=== PATIENT | male | born 1975 | race Caucasian/White ===

== ENCOUNTER 2016-11-14 14:14 | Inpatient (IN) | payer OTHER, SELFPAY ==
[2016-11-14] MEDS ORDERED: Levofloxacin/Dextrose 5%-Water 750 MG in Premix Bag 1 BAG IV ONE (17:13)
--- NOTE | 2016-11-14 17:23 | EDM.PDOC ---
ED HPI GENERAL MEDICAL PROBLEM - General Chief Complaint: Flank Pain Stated Complaint: SICK X 5 DAY Time Seen by Provider: 11/14/16 15:00 Source of Information: Reports: Patient History Limitations: Reports: No Limitations - History of Present Illness INITIAL COMMENTS - FREE TEXT/NARRATIVE: This 41 yo male patient reports to the ED with right flank pain, lower abdominal pain and generalized weakness. The patient reports his symptoms started last Sunday and have been getting worse since the start. 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 Onset Date: 11/10/16 Duration: Constant, Getting Worse Location: Reports: Abdomen Quality: Reports: Ache, Burning, Sharp Severity: Moderate Improves with: Reports: None Worsens with: Reports: None Associated Symptoms: Reports: Cough (non productive), Nausea/Vomiting, Weakness - Related Data Allergies Allergy/AdvReac Type Severity Reaction Status Date / Time No Known Allergies Allergy Verified 11/14/16 14:28 Home Meds: Home Meds Sulfamethoxazole/Trimethoprim [Sulfamethoxazole-Tmp Ss Tablet] 1 tab PO DAILY [History] Past Medical History - Past Health History Medical/Surgical History: Denies Medical/Surgical History HEENT History: Reports: Impaired Vision Genitourinary History: Reports: UTI, Recurrent - Past Surgical History Male Surgical History: Reports: Other (See Below) Other Male Surgeries/Procedures: one functioning kidney Musculoskeletal Surgical History: Reports: Other (See Below) Other Musculoskeletal Surgeries/Procedures:: right leg surgery Social & Family History - Family History Family Medical History: Noncontributory - Tobacco Use Smoking Status *Q: Never Smoker Second Hand Smoke Exposure: No - Caffeine Use Caffeine Use: Reports: None - Alcohol Use Days Per Week of Alcohol Use: 7 Number of Drinks Per Day: 4 Total Drinks Per Week: 28 - Recreational Drug Use Recreational Drug Use: No ED ROS GENERAL - Review of Systems Review Of Systems: ROS reveals no pertinent complaints other than HPI. ED EXAM, RENAL/ - Physical Exam Exam: See Below Exam Limited By: No Limitations General Appearance: Alert, WD/WN, Moderate Distress, Thin Eye Exam: Bilateral Eye: EOMI, Normal Inspection, PERRL Ears: Normal External Exam, Normal Canal, Hearing Grossly Normal, Normal TMs Nose: Normal Inspection, Normal Mucosa, No Blood Throat/Mouth: Normal Inspection, Normal Lips, Normal Teeth, Normal Gums, Normal Oropharynx, Normal Voice, No Airway Compromise Head: Atraumatic, Normocephalic Neck: Normal Inspection, Supple, Non-Tender, Full Range of Motion Respiratory/Chest: No Respiratory Distress, Lungs Clear, Normal Breath Sounds, No Accessory Muscle Use, Chest Non-Tender Cardiovascular: Normal Peripheral Pulses, Regular Rate, Rhythm, No Edema, No Gallop, No JVD, No Murmur, No Rub GI/Abdominal: Normal Bowel Sounds, Soft, No Distention, No Abnormal Bruit, No Mass, Pelvis Stable, Guarding, Tender (mid lower abdominal pain) (Male) Exam: Deferred Rectal (Males) Exam: Deferred Back Exam: Normal Inspection, Full Range of Motion, NT Extremities: Normal Inspection, Normal Range of Motion, Non-Tender, Normal Capillary Refill, No Pedal Edema Neurological: Alert, Oriented, CN II-XII Intact, Normal Cognition, Normal Reflexes, No Motor/Sensory Deficits Psychiatric: Normal Affect, Normal Mood Skin Exam: Warm, Dry, Intact, Normal Color, No Rash Lymphatic: No Adenopathy Course - Vital Signs Last Recorded V/S: Last Vital Signs Temp 38.4 C H 11/14/16 14:29 Pulse 130 H 11/14/16 14:29 Resp 20 11/14/16 14:29 BP 120/80 11/14/16 14:29 Pulse Ox 95 11/14/16 14:29 - Orders/Labs/Meds Orders: Active Orders 24 hr Category Date Time Status CULTURE BLOOD [BC] Stat Lab 11/14/16 16:55 Received CULTURE BLOOD [BC] Stat Lab 11/14/16 16:59 Received CULTURE URINE [RM] Stat Lab 11/14/16 14:25 Received LACTIC ACID [CHEM] Stat Lab 11/14/16 16:55 Received Levofloxacin/Dextrose 5%-Water [Levaquin in D5W 750 MG/ Med 11/14/16 17:13 Ordered 150 ML] 750 mg Premix Bag 1 bag IV ONETIME Blood Culture x2 Reflex Set [OM.PC] Stat Oth 11/14/16 16:39 Ordered Medication Orders Levofloxacin/Dextrose 750 mg/ (Premix) 150 mls @ 100 mls/hr IV ONETIME ONE Stop: 11/14/16 18:42 Labs: Laboratory Tests 11/14/16 11/14/16 11/14/16 Range/Units 14:25 15:46 15:46 WBC 12.7 H (5.0-10.0) 10^3/uL RBC 4.68 (4.6-6.2) 10^6/uL Hgb 13.9 L (14.0-18.0) g/dL Hct 39.4 L (40.0-54.0) % MCV 84.2 (80-100) fL MCH 29.7 (27.0-34.0) pg MCHC 35.3 H (33.0-35.0) g/dL Plt Count 198 (150-450) 10^3/uL Neut % (Auto) 78.8 H (42.2-75.2) % Lymph % (Auto) 7.8 L (20.5-50.1) % Bee % (Auto) 13.3 H (2-8) % Eos % (Auto) 0.0 L (1.0-3.0) % Baso % (Auto) 0.1 (0.0-1.0) % Add Manual Diff Yes Neutrophils % (Manual) 68 % Band Neutrophils % 13 % Lymphocytes % (Manual) 8 % Monocytes % (Manual) 11 % Sodium 126 L (135-145) mmol/L Potassium 3.8 (3.6-5.0) mmol/L Chloride 90 L (101-111) mmol/L Carbon Dioxide 23.0 (21.0-31.0) mmol/L Anion Gap 16.8 BUN 31 H (7-18) mg/dL Creatinine 1.6 H (0.6-1.3) mg/dL Est Cr Clr Drug Dosing 66.01 mL/min Estimated GFR (MDRD) 48 BUN/Creatinine Ratio 19.37 Glucose 108 H (74-105) mg/dL Calcium 8.9 (8.4-10.2) mg/dl Total Bilirubin 1.0 (0.2-1.0) mg/dL AST 41 (10-42) IU/L ALT 51 (10-60) IU/L Alkaline Phosphatase 72 (42-121) IU/L Total Protein 7.8 (6.7-8.2) g/dl Albumin 2.9 L (3.2-5.5) g/dl Globulin 4.9 Albumin/Globulin Ratio 0.59 Urine Color Yellow (YELLOW) Urine Appearance Cloudy (CLEAR) Urine pH 6.0 (5.0-9.0) Ur Specific [place] 1.015 (1.005-1.030) Urine Protein >=300 H (NEGATIVE) Urine Glucose (UA) Negative (NEGATIVE) Urine Ketones 15 H (NEGATIVE) Urine Occult Blood Moderate H (NEGATIVE) Urine Nitrite Positive H (NEGATIVE) Urine Bilirubin Negative (NEGATIVE) Urine Urobilinogen 0.2 (0.2-1.0) mg/dL Ur Leukocyte Esterase Moderate H (NEGATIVE) Urine RBC 5-10 H /HPF Urine WBC 50-75 H (0-5/HPF) /HPF Ur Epithelial Cells Few /HPF Urine Bacteria Many H (0-FEW/HPF) /HPF Meds: Medications Generic Name Dose Route Start Last Admin Trade Name Freq PRN Reason Stop Dose Admin Levofloxacin/Dextrose 750 mg/ 150 mls @ 100 mls/hr 11/14/16 17:13 Premix IV 11/14/16 18:42 ONETIME ONE Departure - Departure Time of Disposition: 17:15 Disposition: Admitted As Inpatient 65 Condition: Fair Clinical Impression: UTI, Urinary tract infectious disease, Hyponatremia - Discharge Information Care Plan Goals: Discussed the examination, lab and history results with Dr. Andrade ( hospitalist with [facility] in [place]). Dr. Andrade accepted the patient for continued evaluation and further treatment as an inpatient. The patient was given an IV dose of Levaquin prior to being transferred to the floor. - My Orders Last 24 Hours: My Active Orders 11/14/16 14:25 CULTURE URINE [RM] Stat 11/14/16 16:39 Blood Culture x2 Reflex Set [OM.PC] Stat 11/14/16 16:55 CULTURE BLOOD [BC] Stat LACTIC ACID [CHEM] Stat 11/14/16 16:59 CULTURE BLOOD [BC] Stat 11/14/16 17:13 Levofloxacin/Dextrose 5%-Water [Levaquin in D5W 750 MG/150 ML] 750 mg Premix Bag 1 bag IV ONETIME - Assessment/Plan Last 24 Hours: My Active Orders 11/14/16 14:25 CULTURE URINE [RM] Stat 11/14/16 16:39 Blood Culture x2 Reflex Set [OM.PC] Stat 11/14/16 16:55 CULTURE BLOOD [BC] Stat LACTIC ACID [CHEM] Stat 11/14/16 16:59 CULTURE BLOOD [BC] Stat 11/14/16 17:13 Levofloxacin/Dextrose 5%-Water [Levaquin in D5W 750 MG/150 ML] 750 mg Premix Bag 1 bag IV ONETIME
[2016-11-14] MEDS ORDERED: Zolpidem 5 MG Tab PO PRN (17:47)
[2016-11-14] MEDS ORDERED: Acetaminophen/HYDROcodone 325-10 MG Tab PO PRN (17:47)
[2016-11-14] MEDS ORDERED: Polyethylene Glycol 3350 Powder 17 GM Packet PO PRN (17:47)
[2016-11-14] MEDS ORDERED: Promethazine 25 MG/ML SDV IM PRN (17:47)
[2016-11-14] MEDS ORDERED: Morphine 2 MG/ML Syringe IVPUSH PRN (17:47)
[2016-11-14] MEDS ORDERED: Ondansetron 4 MG/2 ML SDV IVPUSH PRN (17:47)
--- NOTE | 2016-11-14 18:00 | PCM.HP ---
H&P History of Present Illness - General Date of Service: 11/14/16 Admit Problem/Dx: Admission Diagnosis/Problem Admission Diagnosis/Problem Sepsis Source of Information: Patient, Family () - History of Present Illness Initial Comments - Free Text/Narative: 41-year-old male with the past medical history of recurrent UTI who used to be on chronic treatment of Bactrim but stopped taking Bactrim over 1 year by himself presented to the emergency room with fever, chills, sweats, nausea, vomiting, lower abdomen pain, right flank pain, cough, headache, body aches, poor appetite since 11/10/16 and not getting better. Patient denies dysuria, urinary frequency, blood in his urine, diarrhea, shortness breath, chest pain, or any other symptoms or concerns. Patient denies personal or family history of kidney stones. No significant family history except kidney problem. Patient thinks that he had some congenital urinary problem and that's why he was taking Bactrim. He said whenever he stopped taking his Bactrim he gets urinary infection. Laboratory data revealed WBC 12.7 with left shift. sodium 126. Potassium 3.8. Creatinine 1.6. BUNs 31. Blood glucose 108. Lactic acid 1.1. Liver enzymes are normal. UA is positive for nitrate and has moderate leukocyte esterase and 50-75 WBC, and many bacteria. In the emergency room he was given Levaquin. Patient denies past medical history of hypertension, diabetes mellitus , chronic kidney disease, heart disease, any other chronic disease. He denies taking any medications. - Related Data Allergies/Adverse Reactions: Allergies Allergy/AdvReac Type Severity Reaction Status Date / Time No Known Allergies Allergy Verified 11/14/16 14:28 Home Medications: Home Meds Sulfamethoxazole/Trimethoprim [Sulfamethoxazole-Tmp Ss Tablet] 1 tab PO DAILY [History] Past Medical History - Past Health History Medical/Surgical History: Denies Medical/Surgical History HEENT History: Reports: Impaired Vision Genitourinary History: Reports: UTI, Recurrent - Past Surgical History Male Surgical History: Reports: Other (See Below) Other Male Surgeries/Procedures: one functioning kidney Musculoskeletal Surgical History: Reports: Other (See Below) Other Musculoskeletal Surgeries/Procedures:: right leg surgery Social & Family History - Family History Family Medical History: Noncontributory - Tobacco Use Smoking Status *Q: Never Smoker Second Hand Smoke Exposure: No - Caffeine Use Caffeine Use: Reports: None - Alcohol Use Days Per Week of Alcohol Use: 7 Number of Drinks Per Day: 4 Total Drinks Per Week: 28 - Recreational Drug Use Recreational Drug Use: No H&P Review of Systems - Review of Systems: Review Of Systems: ROS reveals no pertinent complaints other than HPI. Exam - Exam Exam: See Below - Vital Signs Vital Signs: Last Vital Signs Temp 39.0 C H 11/14/16 17:29 Pulse 96 11/14/16 17:29 Resp 20 11/14/16 17:29 BP 130/79 11/14/16 17:29 Pulse Ox 97 11/14/16 17:29 Weight: 77.128 kg - Exam General: Alert, Oriented, Cooperative, Other (He has ill-looking). No: Sedated , Lethargic, Obtunded HEENT: Conjunctiva Clear, EACs Clear, EOMI, Hearing Intact, Mucosa Moist & [place] , Nares Patent, Normal Nasal Septum, Posterior Pharynx Clear, Pupils Equal, Pupils Reactive, TMs Clear Neck: Supple, Trachea Midline. No: JVD Lungs: Clear to Auscultation, Normal Respiratory Effort. No: Decreased Breath Sounds Cardiovascular: Regular Rate, Regular Rhythm GI/Abdominal Exam: Normal Bowel Sounds, Soft, No Organomegaly, No Distention, No Abnormal Bruit, No Mass, Pelvis Stable, Tender (In lower abdomen only). No: Distended, Guarding, Rigid, Rebound (Male) Exam: Deferred Rectal (Males) Exam: Deferred Back Exam: Normal Inspection, Full Range of Motion, CVA Tenderness (R). No: CVA Tenderness (L) Extremities: Normal Inspection, Normal Range of Motion, Non-Tender, No Pedal Edema, Normal Capillary Refill Skin: Warm, Dry, Intact Neurological: Cranial Nerves Intact, Reflexes Equal Bilateral Neuro Extensive - Mental Status: Alert, Oriented x3, Normal Mood/Affect Neuro Extensive - Motor, Sensory, Reflexes: CN II-XII Intact, Normal Gait, Normal Reflexes Psychiatric: Alert, Normal Affect, Normal Mood - Patient Data Result Diagrams: 11/14/16 15:46 11/14/16 15:46 *Q Meaningful Use (ADM) - VTE *Q VTE Criteria *Q: - Stroke *Q Stroke Criteria *Q: - AMI *Q AMI Criteria *Q: - Problem List (1) Sepsis SNOMED Code(s): 11693083 ICD Code: A41.9 - SEPSIS, UNSPECIFIED ORGANISM Status: Acute Current Visit: Yes Problem List Initiated/Reviewed/Updated: Yes Orders Last 24hrs: Active Orders 24 hr Category Date Time Status Patient Status [ADT] Routine ADT 11/14/16 17:47 Ordered Antiembolic Devices [RC] PER UNIT ROUTINE Care 11/14/16 17:51 Ordered Height and Weight [RC] DAILY Care 11/14/16 17:47 Ordered Intake and Output [RC] Q6H Care 11/14/16 17:50 Ordered May Shower [RC] ASDIRECTED Care 11/14/16 17:47 Ordered Oxygen Therapy [RC] PRN Care 11/14/16 17:47 Ordered Up ad Sheila [RC] ASDIRECTED Care 11/14/16 17:47 Ordered VTE/DVT Education [RC] PER UNIT ROUTINE Care 11/14/16 17:47 Ordered Vital Signs [RC] Q4H Care 11/14/16 17:47 Ordered Regular Diet [DIET] Diet 11/14/16 Breakfast Ordered Chest 2V [CR] AM Exams 11/15/16 05:11 Ordered BASIC METABOLIC PANEL,BMP [CHEM] AM Lab 11/15/16 05:11 Ordered CBC WITH AUTO DIFF [HEME] AM Lab 11/15/16 05:11 Ordered MAGNESIUM [CHEM] AM Lab 11/15/16 05:11 Ordered Acetaminophen [Tylenol] Med 11/14/16 17:47 Ordered 650 mg PO Q4H PRN Acetaminophen/HYDROcodone [[place] 325-10 MG] Med 11/14/16 17:47 Ordered 0.5 tab PO Q4H PRN Levofloxacin/Dextrose 5%-Water [Levaquin in D5W 750 MG/ Med 11/14/16 18:00 Ordered 150 ML] 750 mg Premix Bag 1 bag IV Q24H Morphine Med 11/14/16 17:47 Ordered 2 mg IVPUSH Q2H PRN Ondansetron [Zofran] Med 11/14/16 17:47 Ordered 4 mg IVPUSH Q6H PRN Polyethylene Glycol 3350 [MiraLAX] Med 11/14/16 17:47 Ordered 17 gm PO DAILY PRN Promethazine [Phenergan] Med 11/14/16 17:47 Ordered 6.25 mg IM Q6H PRN Sodium Chloride 0.9% [Normal Saline] 1,000 ml Med 11/14/16 18:00 Ordered IV ASDIRECTED Sodium Chloride 0.9% [Normal Saline] 2,350 ml Med 11/14/16 17:45 Ordered IV .BOLUS Zolpidem [Ambien] Med 11/14/16 17:47 Ordered 5 mg PO BEDTIME PRN Antiembolic Hose [OM.PC] Per Unit Routine Oth 11/14/16 17:51 Ordered Sequential Compression Device [OM.PC] Per Unit Routine Oth 11/14/16 17:51 Ordered Resuscitation Status Routine Resus Stat 11/14/16 17:47 Ordered Medication Orders Levofloxacin/Dextrose 750 mg/ (Premix) 150 mls @ 100 mls/hr IV ONETIME ONE Stop: 11/14/16 18:42 Last Admin: 11/14/16 17:18 Dose: 100 mls/hr Assessment/Plan Comment:: Assessment and plan Sepsis, source of infection is most likely urinary tract Elevated WBC and temp Fluid resuscitation with normal saline bolus of 2350 mL -IV fluid infusion of normal saline at 75 mL per hour after the bolus -Levaquin 750 milligrams IV daily -Awaiting urine and blood cultures as they were ordered in ER -Consider CT abdomen if he continues to have symptoms in the next 24-48 hours Urinary tract infection As above Patient was advised to continue taking his Bactrim until he follow-up with his primary care provider and consider urology consult Hyponatremia Fluid resuscitation Recheck sodium in the morning Cough -Chest x-ray ordered WILBER zee and Lyric for DVT prophylaxis. He is full code
[2016-11-14] MEDS: Acetaminophen 325 MG Tab PO PRN (21:15)
[2016-11-14] MEDS: Sodium Chloride 0.9% 1,000 ML IV SCH (21:52)
[2016-11-15] MEDS: Sodium Chloride 0.9% 1,000 ML IV SCH (05:58)
[2016-11-15] MEDS: Acetaminophen 325 MG Tab PO PRN ×3 (10:08→23:00)
[2016-11-15] MEDS ORDERED: Potassium Chloride 10 MEQ Tab.ER PO ONE (10:15)
--- NOTE | 2016-11-15 13:29 | PCM.PN ---
- General Info Date of Service: 11/15/16 Admission Dx/Problem (Free Text): Admission Diagnosis/Problem Admission Diagnosis/Problem Sepsis Subjective Update: Patient stated that he is feeling much better. He is still getting sweats. Lower abdomen/left flank pain, and appetite are improving. His cough still dry and not changed. He denies fever, chills, nausea, vomiting, shortness breath, chest pain, dysuria, urinary frequency, any other symptoms or concerns. - Patient Data Vitals - Most Recent: Last Vital Signs Temp 37.2 C 11/15/16 11:26 Pulse 86 11/15/16 11:26 Resp 20 11/15/16 11:26 BP 124/80 11/15/16 11:26 Pulse Ox 98 11/15/16 11:26 Weight - Most Recent: 75.115 kg I&O - Last 24 Hours: Intake & Output 11/14/16 11/15/16 11/15/16 22:59 06:59 14:59 Intake Total 600 4285 1060 Output Total 600 2700 850 Balance 0 1585 210 Lab Results Last 24 Hours: Laboratory Results - last 24 hr 11/15/16 11/15/16 11/15/16 Range/Units 06:20 06:20 06:20 WBC 9.7 (5.0-10.0) 10^3/uL RBC 4.41 L (4.6-6.2) 10^6/uL Hgb 12.8 L (14.0-18.0) g/dL Hct 37.5 L (40.0-54.0) % MCV 85.0 (80-100) fL MCH 29.0 (27.0-34.0) pg MCHC 34.1 (33.0-35.0) g/dL Plt Count 156 (150-450) 10^3/uL Neut % (Auto) 76.7 H (42.2-75.2) % Lymph % (Auto) 7.6 L (20.5-50.1) % [place] % (Auto) 15.7 H (2-8) % Eos % (Auto) 0.0 L (1.0-3.0) % Baso % (Auto) 0.0 (0.0-1.0) % Sodium 131 L (135-145) mmol/L Potassium 3.5 L (3.6-5.0) mmol/L Chloride 96 L (101-111) mmol/L Carbon Dioxide 22.0 (21.0-31.0) mmol/L Anion Gap 16.5 BUN 26 H (7-18) mg/dL Creatinine 1.5 H (0.6-1.3) mg/dL Est Cr Clr Drug Dosing 68.16 mL/min Estimated GFR (MDRD) 51 Glucose 94 (74-105) mg/dL Calcium 8.5 (8.4-10.2) mg/dl Magnesium 1.9 (1.8-2.5) mg/dL C-Reactive Protein 18.9 H (0.0-1.3) mg/dL Med Orders - Current: Current Medications Acetaminophen (Tylenol) 650 mg PO Q4H PRN PRN Reason: Pain (Mild 1-3)/fever Last Admin: 11/15/16 10:08 Dose: 650 mg Hydrocodone Bitart/Acetaminophen ([place] 325-10 Mg) 0.5 tab PO Q4H PRN PRN Reason: Pain (moderate 4-6) Levofloxacin/Dextrose 750 mg/ (Premix) 150 mls @ 100 mls/hr IV Q24H [place] Sodium Chloride (Normal Saline) 1,000 mls @ 75 mls/hr IV ASDIRECTED [place] Stop: 11/16/16 18:01 Morphine Sulfate (Morphine) 2 mg IVPUSH Q2H PRN PRN Reason: Pain (severe 7-10) Ondansetron HCl (Zofran) 4 mg IVPUSH Q6H PRN PRN Reason: Nausea/Vomiting Polyethylene Glycol (Miralax) 17 gm PO DAILY PRN PRN Reason: Constipation Promethazine HCl (Phenergan) 6.25 mg IM Q6H PRN PRN Reason: Nausea/Vomiting Zolpidem Tartrate (Ambien) 5 mg PO BEDTIME PRN PRN Reason: Sleep Discontinued Medications Levofloxacin/Dextrose 750 mg/ (Premix) 150 mls @ 100 mls/hr IV ONETIME ONE Stop: 11/14/16 18:42 Last Admin: 11/14/16 17:18 Dose: 100 mls/hr Sodium Chloride (Normal Saline) 2,350 mls @ 999 mls/hr IV .BOLUS ONE Stop: 11/14/16 20:06 Last Infusion: 11/14/16 21:52 Dose: Infused Sodium Chloride (Normal Saline) 1,000 mls @ 75 mls/hr IV ASDIRECTED [facility] Last Admin: 11/15/16 05:58 Dose: 75 mls/hr Potassium Chloride (Klor-Con 10) 20 meq PO ONETIME ONE Stop: 11/15/16 10:16 Last Admin: 11/15/16 10:36 Dose: 20 meq - Exam General: Alert, Oriented, Cooperative, No Acute Distress, Other (He still look mildly ill). No: Moderate Distress, Severe Distress, Sedated, Lethargic, Obtunded HEENT: Pupils Equal, Pupils Reactive, EOMI, Mucous Membr. Moist/[place] Neck: Supple, Trachea Midline, No JVD Lungs: Clear to Auscultation, Normal Respiratory Effort Cardiovascular: Regular Rate, Regular Rhythm GI/Abdominal Exam: Normal Bowel Sounds, Soft, Non-Tender, No Organomegaly, No Distention, No Abnormal Bruit, No Mass, Pelvis Stable (Male) Exam: Deferred Back Exam: Normal Inspection, Full Range of Motion Extremities: Normal Inspection, Normal Range of Motion, Non-Tender, No Pedal Edema, Normal Capillary Refill Skin: Warm, Intact, Moist Neurological: No New Focal Deficit Psy/Mental Status: Alert, Normal Affect, Normal Mood - Problem List & Annotations (1) Sepsis SNOMED Code(s): 89150271 Code(s): A41.9 - SEPSIS, UNSPECIFIED ORGANISM Status: Acute Current Visit : Yes - Problem List Review Problem List Initiated/Reviewed/Updated: Yes - My Orders Last 24 Hours: My Active Orders 11/15/16 17:00 Levofloxacin/Dextrose 5%-Water [Levaquin in D5W 750 MG/150 ML] 750 mg Premix Bag 1 bag IV Q24H 11/15/16 18:00 Sodium Chloride 0.9% [Normal Saline] 1,000 ml IV ASDIRECTED - Plan Plan:: Assessment and plan Sepsis, source of infection is most likely urinary tract. He had elevated WBC and temp On admission patient received fluid resuscitation with normal saline bolus of 2350 mL -Continue IV fluid infusion of normal saline at 75 mL per hour for all another 24 hours -Continue Levaquin 750 milligrams IV daily -Urine culture grew gram-negative rods -Awaiting blood cultures report -Consider CT abdomen if he continues to have symptoms in the next 24-48 hours Urinary tract infection As above Patient was advised to continue taking his Bactrim until he follow-up with his primary care provider and consider urology consult Acute kidney failure Patient declined chronic kidney disease Creatinine improved from 1.6-1.5 -Continue IV fluid infusion Avoid nephrotoxic medications Patient was 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 He admitted Hyponatremia Improving -Recheck sodium in the morning Hypokalemia -Replaced orally Cough Chest x-ray is negative WILBER zee and Lyric for DVT prophylaxis. He is ambulatory He is full code
[2016-11-15] MEDS: Levofloxacin/Dextrose 5%-Water 750 MG in Premix Bag 1 BAG IV SCH (16:47)
[2016-11-15] MEDS ORDERED: Acetaminophen 500 MG Tab PO ONE (17:01)
[2016-11-15] MEDS ORDERED: Sodium Chloride 0.9% 1,000 ML IV SCH (18:00)
[2016-11-16 07:03] LABS: CHLORIDE,CL 99 mmol/L (101-111); SODIUM,NA 132 mmol/L (135-145)
[2016-11-16] MEDS: Acetaminophen 325 MG Tab PO PRN ×3 (07:42→20:38)
[2016-11-16] MEDS ORDERED: Potassium Chloride 10 MEQ Tab.ER PO ONE (08:31)
--- NOTE | 2016-11-16 11:38 | PCM.PN ---
- General Info Date of Service: 11/16/16 Admission Dx/Problem (Free Text): Admission Diagnosis/Problem Admission Diagnosis/Problem Sepsis Subjective Update: Patient stated that he is feeling better but is still having high fever and getting sweats. Lower abdomen/left flank pain, and appetite resolved. His cough still dry and getting better. He denies fever, chills, nausea, vomiting, shortness breath, chest pain, dysuria, urinary frequency, any other symptoms or concerns. - Patient Data Vitals - Most Recent: Last Vital Signs Temp 37.6 C 11/16/16 11:20 Pulse 82 11/16/16 11:20 Resp 19 11/16/16 11:20 BP 119/77 11/16/16 11:20 Pulse Ox 97 11/16/16 11:20 Weight - Most Recent: 75.206 kg I&O - Last 24 Hours: Intake & Output 11/15/16 11/16/16 11/16/16 22:59 06:59 14:59 Intake Total 2031 1825 1680 Output Total 1150 1600 900 Balance 881 225 780 Lab Results Last 24 Hours: Laboratory Results - last 24 hr 11/16/16 11/16/16 11/16/16 Range/Units 06:10 06:10 06:10 WBC 8.6 (5.0-10.0) 10^3/uL RBC 4.35 L (4.6-6.2) 10^6/uL Hgb 12.5 L (14.0-18.0) g/dL Hct 37.2 L (40.0-54.0) % MCV 85.5 (80-100) fL MCH 28.7 (27.0-34.0) pg MCHC 33.6 (33.0-35.0) g/dL Plt Count 174 (150-450) 10^3/uL Neut % (Auto) 69.5 (42.2-75.2) % Lymph % (Auto) 12.3 L (20.5-50.1) % [place] % (Auto) 18.1 H (2-8) % Eos % (Auto) 0.0 L (1.0-3.0) % Baso % (Auto) 0.1 (0.0-1.0) % Add Manual Diff Yes Neutrophils % (Manual) 74 % Band Neutrophils % 3 % Lymphocytes % (Manual) 11 % Monocytes % (Manual) 11 % Metamyelocytes % 1 Atypical Lymphocytes Few Vacuolated Monocytes 1+ slight Toxic Granulation 1+ slight Dohle Bodies 1+ slight Platelet Estimate Adequate Target Cells 1+ slight Tear Drop Cells 1+ slight [place] Cells 1+ slight Sodium 132 L (135-145) mmol/L Potassium 3.4 L (3.6-5.0) mmol/L Chloride 99 L (101-111) mmol/L Carbon Dioxide 23.0 (21.0-31.0) mmol/L Anion Gap 13.4 BUN 17 (7-18) mg/dL Creatinine 1.3 (0.6-1.3) mg/dL Est Cr Clr Drug Dosing 78.65 mL/min Estimated GFR (MDRD) > 60 Glucose 98 (74-105) mg/dL Calcium 8.3 L (8.4-10.2) mg/dl C-Reactive Protein 17.0 H (0.0-1.3) mg/dL Joey Results Last 24 Hours: Microbiology 11/16/16 08:50 Anaerobic Blood Culture - Final Blood - Venous - Lab Draw Med Orders - Current: Current Medications Acetaminophen (Tylenol) 650 mg PO Q4H PRN PRN Reason: Pain (Mild 1-3)/fever Last Admin: 11/16/16 07:42 Dose: 650 mg Hydrocodone Bitart/Acetaminophen (Irons 325-10 Mg) 0.5 tab PO Q4H PRN PRN Reason: Pain (moderate 4-6) Guaifenesin (Mucus Relief) 400 mg PO Q4H PRN PRN Reason: Cough Last Admin: 11/15/16 15:30 Dose: 400 mg Levofloxacin/Dextrose 750 mg/ (Premix) 150 mls @ 100 mls/hr IV Q24H [place] Last Infusion: 11/15/16 18:42 Dose: Infused Sodium Chloride (Normal Saline) 1,000 mls @ 75 mls/hr IV ASDIRECTED [facility] Stop: 11/16/16 18:01 Last Admin: 11/15/16 22:15 Dose: 75 mls/hr Morphine Sulfate (Morphine) 2 mg IVPUSH Q2H PRN PRN Reason: Pain (severe 7-10) Ondansetron HCl (Zofran) 4 mg IVPUSH Q6H PRN PRN Reason: Nausea/Vomiting Polyethylene Glycol (Miralax) 17 gm PO DAILY PRN PRN Reason: Constipation Promethazine HCl (Phenergan) 6.25 mg IM Q6H PRN PRN Reason: Nausea/Vomiting Zolpidem Tartrate (Ambien) 5 mg PO BEDTIME PRN PRN Reason: Sleep Discontinued Medications Acetaminophen (Tylenol Extra Strength) 500 mg PO ONETIME ONE Stop: 11/15/16 17:02 Last Admin: 11/15/16 17:11 Dose: 500 mg Levofloxacin/Dextrose 750 mg/ (Premix) 150 mls @ 100 mls/hr IV ONETIME ONE Stop: 11/14/16 18:42 Last Admin: 11/14/16 17:18 Dose: 100 mls/hr Sodium Chloride (Normal Saline) 2,350 mls @ 999 mls/hr IV .BOLUS ONE Stop: 11/14/16 20:06 Last Infusion: 11/14/16 21:52 Dose: Infused Sodium Chloride (Normal Saline) 1,000 mls @ 75 mls/hr IV ASDIRECTED [facility] Last Admin: 11/15/16 05:58 Dose: 75 mls/hr Potassium Chloride (Klor-Con 10) 20 meq PO ONETIME ONE Stop: 11/15/16 10:16 Last Admin: 11/15/16 10:36 Dose: 20 meq Potassium Chloride (Klor-Con 10) 40 meq PO ONETIME ONE Stop: 11/16/16 08:32 Last Admin: 11/16/16 08:56 Dose: 40 meq - Exam General: Alert, Oriented, Cooperative, No Acute Distress. No: Sedated, Lethargic, Obtunded HEENT: Pupils Equal, Pupils Reactive, EOMI, Mucous Membr. Moist/[place] Neck: Supple, Trachea Midline, No JVD Lungs: Clear to Auscultation, Normal Respiratory Effort. No: Decreased Breath Sounds, Crackles, Rales, Rhonchi, Rub, Stridor, Wheezing Cardiovascular: Regular Rate, Regular Rhythm GI/Abdominal Exam: Normal Bowel Sounds, Soft, Non-Tender, No Organomegaly, No Distention, No Abnormal Bruit, No Mass (Male) Exam: Deferred Back Exam: Normal Inspection, Full Range of Motion. No: CVA Tenderness (L), CVA Tenderness (R) Extremities: Normal Inspection, Normal Range of Motion, Non-Tender, No Pedal Edema, Normal Capillary Refill Neurological: No New Focal Deficit Psy/Mental Status: Alert, Normal Affect, Normal Mood - Problem List & Annotations (1) Sepsis SNOMED Code(s): 67728529 Code(s): A41.9 - SEPSIS, UNSPECIFIED ORGANISM Status: Acute Current Visit : Yes - Problem List Review Problem List Initiated/Reviewed/Updated: Yes - My Orders Last 24 Hours: My Active Orders 11/15/16 15:15 guaiFENesin [Mucus Relief] 400 mg PO Q4H PRN 11/15/16 17:00 Levofloxacin/Dextrose 5%-Water [Levaquin in D5W 750 MG/150 ML] 750 mg Premix Bag 1 bag IV Q24H 11/15/16 18:00 Sodium Chloride 0.9% [Normal Saline] 1,000 ml IV ASDIRECTED 11/16/16 08:25 Blood Culture x2 Reflex Set [OM.PC] Stat 11/16/16 08:48 CULTURE BLOOD [BC] Stat 11/16/16 08:50 CULTURE BLOOD [BC] Stat 11/17/16 05:11 BASIC METABOLIC PANEL,BMP [CHEM] AM CBC WITH AUTO DIFF [HEME] AM MAGNESIUM [CHEM] AM - Plan Plan:: Assessment and plan Sepsis, source of infection is most likely urinary tract. He had elevated WBC and temp On admission patient received fluid resuscitation with normal saline bolus of 2350 mL Urine culture came back positive for Escherichia coli which is sensitive to Levaquin -Continue IV fluid infusion of normal saline at 75 mL per hour for all another 24 hours -Continue Levaquin 750 milligrams IV daily -blood cultures on admission still negative -Ordered another 2 sets of cultures today since she still having fever -Consider CT abdomen if he continues to have symptoms in the next 24-48 hours Urinary tract infection As above Patient was advised to continue taking his Bactrim until he follow-up with his primary care provider and consider urology consult Acute kidney failure Patient declined chronic kidney disease Creatinine improved from 1.6>1.5>1.3 -Continue IV fluid infusion Avoid nephrotoxic medications Patient was advised to follow up with patient transport orderly after discharge. He admitted Hyponatremia Improving -Recheck sodium in the morning Hypokalemia -Replaced orally -Check magnesium level Cough Chest x-ray is negative WILBER zee and SAMMIEs for DVT prophylaxis. He is ambulatory He is full code
[2016-11-16] MEDS: Sodium Chloride 0.9% 1,000 ML IV SCH (11:48)
[2016-11-16] MEDS: Levofloxacin/Dextrose 5%-Water 750 MG in Premix Bag 1 BAG IV SCH (17:32)
[2016-11-17] MEDS: Sodium Chloride 0.9% 1,000 ML IV SCH (02:44)
[2016-11-17 06:46] LABS: CHLORIDE,CL 102 mmol/L (101-111); SODIUM,NA 133 mmol/L (135-145)
[2016-11-17] MEDS ORDERED: Magnesium Sulfate/Water 2 GM in Premix Bag 1 BAG IV ONE (08:48)
[2016-11-17] MEDS ORDERED: Iopamidol 612 MG/ML 100 ML Bottle IVPUSH ONE (09:47)
[2016-11-17] MEDS: cefTRIAXone 2 GM in Sodium Chloride 0.9% 100 ML IV SCH (12:40)
--- NOTE | 2016-11-17 13:37 | PCM.PN ---
- General Info Date of Service: 11/17/16 Admission Dx/Problem (Free Text): Admission Diagnosis/Problem Admission Diagnosis/Problem Sepsis Subjective Update: Patient stated that he is feeling better. He declined new symptoms. However he is still having high fever and getting sweats. Lower abdomen/left flank pain, and appetite resolved. His cough still dry and getting better. He denies nausea , vomiting, shortness breath, chest pain, dysuria, urinary frequency, any other symptoms or concerns. Patien denies voiding air or having materials in the urine. - Patient Data Vitals - Most Recent: Last Vital Signs Temp 37.9 C 11/17/16 12:00 Pulse 93 11/17/16 12:00 Resp 16 11/17/16 12:00 BP 123/81 11/17/16 12:00 Pulse Ox 98 11/17/16 12:00 Weight - Most Recent: 75.841 kg I&O - Last 24 Hours: Intake & Output 11/16/16 11/17/16 11/17/16 22:59 06:59 14:59 Intake Total 150 2419 50 Output Total 900 900 Balance -750 1519 50 Lab Results Last 24 Hours: Laboratory Results - last 24 hr 11/17/16 11/17/16 Range/Units 05:35 05:35 WBC 8.4 (5.0-10.0) 10^3/uL RBC 4.16 L (4.6-6.2) 10^6/uL Hgb 12.2 L (14.0-18.0) g/dL Hct 35.7 L (40.0-54.0) % MCV 85.8 (80-100) fL MCH 29.3 (27.0-34.0) pg MCHC 34.2 (33.0-35.0) g/dL Plt Count 167 (150-450) 10^3/uL Neut % (Auto) 66.6 (42.2-75.2) % Lymph % (Auto) 15.9 L (20.5-50.1) % [place] % (Auto) 16.2 H (2-8) % Eos % (Auto) 1.1 (1.0-3.0) % Baso % (Auto) 0.2 (0.0-1.0) % Sodium 133 L (135-145) mmol/L Potassium 3.6 (3.6-5.0) mmol/L Chloride 102 (101-111) mmol/L Carbon Dioxide 21.0 (21.0-31.0) mmol/L Anion Gap 13.6 BUN 13 (7-18) mg/dL Creatinine 1.2 (0.6-1.3) mg/dL Est Cr Clr Drug Dosing 85.30 mL/min Estimated GFR (MDRD) > 60 Glucose 95 (74-105) mg/dL Calcium 8.3 L (8.4-10.2) mg/dl Magnesium 1.7 L (1.8-2.5) mg/dL Joey Results Last 24 Hours: Microbiology 11/16/16 08:48 Aerobic Blood Culture - Preliminary Blood - Venous NO GROWTH AFTER 1 DAY Anaerobic Blood Culture - Preliminary NO GROWTH AFTER 1 DAY 11/16/16 08:50 Aerobic Blood Culture - Preliminary Blood - Venous - Lab Draw NO GROWTH AFTER 1 DAY Anaerobic Blood Culture - Final Med Orders - Current: Current Medications Acetaminophen (Tylenol) 650 mg PO Q4H PRN PRN Reason: Pain (Mild 1-3)/fever Last Admin: 11/16/16 20:38 Dose: 650 mg Hydrocodone Bitart/Acetaminophen (Roy 325-10 Mg) 0.5 tab PO Q4H PRN PRN Reason: Pain (moderate 4-6) Guaifenesin (Mucus Relief) 400 mg PO Q4H PRN PRN Reason: Cough Last Admin: 11/15/16 15:30 Dose: 400 mg Ceftriaxone Sodium 2 gm/ (Sodium Chloride) 100 mls @ 200 mls/hr IV Q24H [place] Last Admin: 11/17/16 12:40 Dose: 200 mls/hr Morphine Sulfate (Morphine) 2 mg IVPUSH Q2H PRN PRN Reason: Pain (severe 7-10) Ondansetron HCl (Zofran) 4 mg IVPUSH Q6H PRN PRN Reason: Nausea/Vomiting Polyethylene Glycol (Miralax) 17 gm PO DAILY PRN PRN Reason: Constipation Promethazine HCl (Phenergan) 6.25 mg IM Q6H PRN PRN Reason: Nausea/Vomiting Zolpidem Tartrate (Ambien) 5 mg PO BEDTIME PRN PRN Reason: Sleep Discontinued Medications Acetaminophen (Tylenol Extra Strength) 500 mg PO ONETIME ONE Stop: 11/15/16 17:02 Last Admin: 11/15/16 17:11 Dose: 500 mg Levofloxacin/Dextrose 750 mg/ (Premix) 150 mls @ 100 mls/hr IV ONETIME ONE Stop: 11/14/16 18:42 Last Admin: 11/14/16 17:18 Dose: 100 mls/hr Levofloxacin/Dextrose 750 mg/ (Premix) 150 mls @ 100 mls/hr IV Q24H [place] Last Infusion: 11/16/16 19:05 Dose: Infused Sodium Chloride (Normal Saline) 2,350 mls @ 999 mls/hr IV .BOLUS ONE Stop: 11/14/16 20:06 Last Infusion: 11/14/16 21:52 Dose: Infused Sodium Chloride (Normal Saline) 1,000 mls @ 75 mls/hr IV ASDIRECTED [facility] Last Admin: 11/15/16 05:58 Dose: 75 mls/hr Sodium Chloride (Normal Saline) 1,000 mls @ 75 mls/hr IV ASDIRECTED [facility] Stop: 11/16/16 18:01 Last Infusion: 11/16/16 11:43 Dose: Infused Sodium Chloride (Normal Saline) 1,000 mls @ 75 mls/hr IV ASDIRECTED [facility] Stop: 11/17/16 11:37 Last Admin: 11/17/16 02:44 Dose: 75 mls/hr Magnesium Sulfate 2 gm/ Premix 50 mls @ 25 mls/hr IV ONETIME ONE Stop: 11/17/16 10:47 Last Infusion: 11/17/16 12:38 Dose: Infused Iopamidol (Isovue-300 (61%)) 100 ml IVPUSH ONETIME ONE Stop: 11/17/16 09:48 Last Admin: 11/17/16 10:03 Dose: 100 ml Potassium Chloride (Klor-Con 10) 20 meq PO ONETIME ONE Stop: 11/15/16 10:16 Last Admin: 11/15/16 10:36 Dose: 20 meq Potassium Chloride (Klor-Con 10) 40 meq PO ONETIME ONE Stop: 11/16/16 08:32 Last Admin: 11/16/16 08:56 Dose: 40 meq - Exam General: Alert, Oriented, Cooperative, No Acute Distress. No: Moderate Distress , Severe Distress, Sedated, Lethargic, Obtunded HEENT: Pupils Equal, Pupils Reactive, EOMI, Mucous Membr. Moist/[place] Neck: Supple, Trachea Midline, No JVD Lungs: Clear to Auscultation, Normal Respiratory Effort Cardiovascular: Regular Rate, Regular Rhythm GI/Abdominal Exam: Normal Bowel Sounds, Soft, Non-Tender, No Organomegaly, No Distention, No Abnormal Bruit, No Mass (Male) Exam: Deferred Back Exam: Normal Inspection, Full Range of Motion. No: CVA Tenderness (L), CVA Tenderness (R) Extremities: Normal Inspection, Normal Range of Motion, Non-Tender, No Pedal Edema, Normal Capillary Refill Skin: Warm, Dry, Intact Neurological: No New Focal Deficit Psy/Mental Status: Alert, Normal Affect, Normal Mood - Problem List & Annotations (1) Sepsis SNOMED Code(s): 99218943 Code(s): A41.9 - SEPSIS, UNSPECIFIED ORGANISM Status: Acute Current Visit : Yes (2) Perinephric abscess SNOMED Code(s): 46946495 Code(s): N15.1 - RENAL AND PERINEPHRIC ABSCESS Status: Acute Current Visit: Yes - Problem List Review Problem List Initiated/Reviewed/Updated: Yes - My Orders Last 24 Hours: My Active Orders 11/17/16 09:20 Abdomen Pelvis w wo Cont [CT] Routine 11/17/16 12:00 cefTRIAXone [Rocephin] 2 gm Sodium Chloride 0.9% [Normal Saline] 100 ml IV Q24H 11/17/16 12:52 Pelvis wo Cont [CT] Stat 11/18/16 05:11 CBC WITH AUTO DIFF [HEME] AM COMPREHENSIVE METABOLIC PN,CMP [CHEM] AM CRP [C-REACTIVE PROTEIN] [CHEM] AM 11/20/16 06:00 Echo Comp wo Cont [US] Routine - Plan Plan:: Assessment and plan Sepsis, source of infection is most likely urinary tract. He had elevated WBC and temp On admission patient received fluid resuscitation with normal saline bolus of 2350 mL Urine culture came back positive for Escherichia coli which is sensitive to Levaquin -Continue IV fluid infusion of normal saline at 50 mL per hour for all another 24 hours -Continue Levaquin 750 milligrams IV daily -blood cultures on admission still negative -Ordered another 2 sets of cultures today since she still having fever -Consider CT abdomen if he continues to have symptoms in the next 24-48 hours Right perinephritic abscess -CT abdomen and pelvis without and with contrast is done today and reported 2 Perinephritic abscesses measuring 6 x 9 mm. -I spoke to Dr. Mac, from infectious disease, Dr. Briceno, from interventional radiology, and Dr. Mata from urology, at [facility], and Dr. Diamond, right urologist from [facility], today and discussed the case with them -At this time we'll change Levaquin to Rocephin 2 g daily, serial CT abdomen and pelvis with contrast in 7 days and sooner if patient continues to have fever , consider doing echocardiogram on Sunday if still having fever. Length of IV antibiotic according to Dr. Mac is 4-6 weeks. Abscesses are not drainable according to Dr. Briceno, and Dr. Mata -Delayed CT of pelvis is ordered due to concern about air in the bladder. Patient did not have any Kaplan catheter recently to explain the air. -Patient gave me permission to look at his chart at all true. 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 ~He was most recently seen by urologist up in [place] and told that there was no need in doing any further studies or surgery because the results of any further operation could not be guaranteed due to the multiple congenital anomalies. " Pyelonephritis As above Patient was advised to continue taking his Bactrim until he follow-up with his primary care provider and consider urology consult Acute kidney failure Patient declined chronic kidney disease Creatinine improved from 1.6>1.5>1.3 -Continue IV fluid infusion Avoid nephrotoxic medications Patient was advised to follow up with special education associate after discharge. He admitted Hypomagnesemia Magnesium sulfate 2 g IV once ordered Hyponatremia Improving -Recheck sodium in the morning Hypokalemia -Replaced orally Cough Chest x-ray is negative WILBER zee and Lyric for DVT prophylaxis. He is ambulatory He is full code
[2016-11-17] MEDS ORDERED: Sodium Chloride 0.9% 1,000 ML IV SCH (14:00)
--- NOTE | 2016-11-17 14:07 | PCM.DCSUM1 ---
Discharge Summary - Hospital Course Free Text/Narrative:: 65-year-old male with the past medical history of hayfever, prostate cancer status post surgical treatment in 2008 present to the emergency room with respiratory symptoms. Patient stated that on 11/13/16 started having sinus congestion, productive cough, fever. Also he started having chills, shortness breath while resting, nausea, fatigue, vomiting and his sat at home were 92%. He denied ear pain, sore throat, chest pain, headache, body aches, abdominal pain, diarrhea, urinary symptoms, unilateral weakness/numbness/tingling, any other symptoms or concerns. Patient denies history of current or previous tobacco use or secondhand smoking, diabetes mellitus, hypertension, heart disease, asthma, COPD, lung disease, any other chronic disease. In Emergency room his rapid influenza and rapid strep tests were negative. WBC 11.1 with left shift area sodium 142. Potassium 4.1. Carbon dioxide 24. Bun 19. Creatinine 1.2. Lactic acid 2.2. CRP 13.1. Liver enzymes normal. Urinalysis normal. Chest x-ray reported "subtle left retrocardiac opacity which may represent early pneumonia." He received Zofran, 2 L of normal saline, Rocephin 1 g IV, and is azithromycin 500 mg IV. Patient gradually is getting better. His cough is much better. Today he denies fever, chills, nausea, vomiting, chest pain, shortness breath, abdominal pain, or symptoms, unilateral weakness, any other symptoms or concern. He is not requiring nasal oxygen. His laboratory workup from today reported WBC 9.2. Hemoglobin 12.9. BMP normal. Patient was advised to follow-up with primary care provider in the next 5-7 days for his pneumonia also for his low hemoglobin. His low hemoglobin possibly from transient bone marrow suppression from pneumonia. Patient was anxious to go home and did not want to stay 1 more day of IV antibiotic. He completed 3 days of IV antibiotics including today. Patient will complete another 7 days of antibiotic, Vantin and azithromycin. He was prescribed albuterol inhaler and Mucinex for cough and shortness breath as needed. Patient was informed that he needs to repeat the chest x-ray in 4-6 weeks to confirm pneumonia resolution and no other hidden pathology appreciated. - Discharge Data Discharge Date: 11/17/16 Discharge Disposition: Home, Self-Care 01 Condition: Good - Discharge Diagnosis/Problem(s) (1) Sepsis SNOMED Code(s): 74715004 ICD Code: A41.9 - SEPSIS, UNSPECIFIED ORGANISM Status: Acute Current Visit: Yes (2) Perinephric abscess SNOMED Code(s): 62471117 ICD Code: N15.1 - RENAL AND PERINEPHRIC ABSCESS Status: Acute Current Visit: Yes - Discharge Plan Home Medications: Home Meds Sulfamethoxazole/Trimethoprim [Sulfamethoxazole-Tmp Ss Tablet] 1 tab PO DAILY [History] Referrals: PCP,None [Primary Care Provider] - - General Info Admission Dx/Problem (Free Text: Admission Diagnosis/Problem Admission Diagnosis/Problem Sepsis - Review of Systems General: Reports: No Symptoms HEENT: Reports: No Symptoms Pulmonary: Reports: Cough. Denies: Shortness of Breath, Pleuritic Chest Pain, Hemoptysis, Wheezing Cardiovascular: Reports: No Symptoms Gastrointestinal: Reports: No Symptoms Genitourinary: Reports: No Symptoms Musculoskeletal: Reports: No Symptoms Skin: Reports: No Symptoms Neurological: Reports: No Symptoms Psychiatric: Reports: No Symptoms - Patient Data Vitals - Most Recent: Last Vital Signs Temp 37.9 C 11/17/16 12:00 Pulse 93 11/17/16 12:00 Resp 16 11/17/16 12:00 BP 123/81 11/17/16 12:00 Pulse Ox 98 11/17/16 12:00 Weight - Most Recent: 75.841 kg I&O - Last 24 hours: Intake & Output 11/16/16 11/17/16 11/17/16 22:59 06:59 14:59 Intake Total 150 2419 50 Output Total 900 900 Balance -750 1519 50 Lab Results - Last 24 hrs: Laboratory Results - last 24 hr 11/17/16 11/17/16 Range/Units 05:35 05:35 WBC 8.4 (5.0-10.0) 10^3/uL RBC 4.16 L (4.6-6.2) 10^6/uL Hgb 12.2 L (14.0-18.0) g/dL Hct 35.7 L (40.0-54.0) % MCV 85.8 (80-100) fL MCH 29.3 (27.0-34.0) pg MCHC 34.2 (33.0-35.0) g/dL Plt Count 167 (150-450) 10^3/uL Neut % (Auto) 66.6 (42.2-75.2) % Lymph % (Auto) 15.9 L (20.5-50.1) % [place] % (Auto) 16.2 H (2-8) % Eos % (Auto) 1.1 (1.0-3.0) % Baso % (Auto) 0.2 (0.0-1.0) % Sodium 133 L (135-145) mmol/L Potassium 3.6 (3.6-5.0) mmol/L Chloride 102 (101-111) mmol/L Carbon Dioxide 21.0 (21.0-31.0) mmol/L Anion Gap 13.6 BUN 13 (7-18) mg/dL Creatinine 1.2 (0.6-1.3) mg/dL Est Cr Clr Drug Dosing 85.30 mL/min Estimated GFR (MDRD) > 60 Glucose 95 (74-105) mg/dL Calcium 8.3 L (8.4-10.2) mg/dl Magnesium 1.7 L (1.8-2.5) mg/dL NICHO Results - Last 24 hrs: Microbiology 11/16/16 08:48 Aerobic Blood Culture - Preliminary Blood - Venous NO GROWTH AFTER 1 DAY Anaerobic Blood Culture - Preliminary NO GROWTH AFTER 1 DAY 11/16/16 08:50 Aerobic Blood Culture - Preliminary Blood - Venous - Lab Draw NO GROWTH AFTER 1 DAY Anaerobic Blood Culture - Final Med Orders - Current: Current Medications Acetaminophen (Tylenol) 650 mg PO Q4H PRN PRN Reason: Pain (Mild 1-3)/fever Last Admin: 11/16/16 20:38 Dose: 650 mg Hydrocodone Bitart/Acetaminophen (Irons 325-10 Mg) 0.5 tab PO Q4H PRN PRN Reason: Pain (moderate 4-6) Guaifenesin (Mucus Relief) 400 mg PO Q4H PRN PRN Reason: Cough Last Admin: 11/15/16 15:30 Dose: 400 mg Ceftriaxone Sodium 2 gm/ (Sodium Chloride) 100 mls @ 200 mls/hr IV Q24H [facility] Last Admin: 11/17/16 12:40 Dose: 200 mls/hr Sodium Chloride (Normal Saline) 1,000 mls @ 50 mls/hr IV ASDIRECTED [facility] Stop: 11/18/16 14:01 Morphine Sulfate (Morphine) 2 mg IVPUSH Q2H PRN PRN Reason: Pain (severe 7-10) Ondansetron HCl (Zofran) 4 mg IVPUSH Q6H PRN PRN Reason: Nausea/Vomiting Polyethylene Glycol (Miralax) 17 gm PO DAILY PRN PRN Reason: Constipation Promethazine HCl (Phenergan) 6.25 mg IM Q6H PRN PRN Reason: Nausea/Vomiting Zolpidem Tartrate (Ambien) 5 mg PO BEDTIME PRN PRN Reason: Sleep Discontinued Medications Acetaminophen (Tylenol Extra Strength) 500 mg PO ONETIME ONE Stop: 11/15/16 17:02 Last Admin: 11/15/16 17:11 Dose: 500 mg Levofloxacin/Dextrose 750 mg/ (Premix) 150 mls @ 100 mls/hr IV ONETIME ONE Stop: 11/14/16 18:42 Last Admin: 11/14/16 17:18 Dose: 100 mls/hr Levofloxacin/Dextrose 750 mg/ (Premix) 150 mls @ 100 mls/hr IV Q24H [facility] Last Infusion: 11/16/16 19:05 Dose: Infused Sodium Chloride (Normal Saline) 2,350 mls @ 999 mls/hr IV .BOLUS ONE Stop: 11/14/16 20:06 Last Infusion: 11/14/16 21:52 Dose: Infused Sodium Chloride (Normal Saline) 1,000 mls @ 75 mls/hr IV ASDIRECTED [facility] Last Admin: 11/15/16 05:58 Dose: 75 mls/hr Sodium Chloride (Normal Saline) 1,000 mls @ 75 mls/hr IV ASDIRECTED [facility] Stop: 11/16/16 18:01 Last Infusion: 11/16/16 11:43 Dose: Infused Sodium Chloride (Normal Saline) 1,000 mls @ 75 mls/hr IV ASDIRECTED [facility] Stop: 11/17/16 11:37 Last Admin: 11/17/16 02:44 Dose: 75 mls/hr Magnesium Sulfate 2 gm/ Premix 50 mls @ 25 mls/hr IV ONETIME ONE Stop: 11/17/16 10:47 Last Infusion: 11/17/16 12:38 Dose: Infused Iopamidol (Isovue-300 (61%)) 100 ml IVPUSH ONETIME ONE Stop: 11/17/16 09:48 Last Admin: 11/17/16 10:03 Dose: 100 ml Potassium Chloride (Klor-Con 10) 20 meq PO ONETIME ONE Stop: 11/15/16 10:16 Last Admin: 11/15/16 10:36 Dose: 20 meq Potassium Chloride (Klor-Con 10) 40 meq PO ONETIME ONE Stop: 11/16/16 08:32 Last Admin: 11/16/16 08:56 Dose: 40 meq - Exam General: Reports: Alert, Oriented, Cooperative, No Acute Distress. Denies: Mild Distress, Moderate Distress, Severe Distress, Sedated, Lethargic, Obtunded HEENT: Reports: Pupils Equal, Pupils Reactive, EOMI, Mucous Membr. Moist/[place] Neck: Reports: Supple, Trachea Midline, No JVD Lungs: Reports: Clear to Auscultation, Normal Respiratory Effort, Decreased Breath Sounds. Denies: Crackles, Rales, Rhonchi, Rub, Stridor, Wheezing Cardiovascular: Reports: Regular Rate, Regular Rhythm GI/Abdominal Exam: Normal Bowel Sounds, Soft, Non-Tender, No Organomegaly, No Distention, No Abnormal Bruit, No Mass (Male) Exam: Deferred Rectal (Males) Exam: Deferred Back Exam: Reports: Normal Inspection, Full Range of Motion. Denies: CVA Tenderness (L), CVA Tenderness (R) Extremities: Normal Inspection, Normal Range of Motion, Non-Tender, No Pedal Edema, Normal Capillary Refill Skin: Reports: Warm, Intact Neurological: Reports: No New Focal Deficit Psy/Mental Status: Reports: Alert, Normal Affect, Normal Mood *Q Meaningful Use (DIS) - VTE *Q VTE Criteria *Q: - Stroke *Q Stroke Criteria *Q: - AMI *Q AMI Criteria *Q:
[2016-11-17] MEDS: Acetaminophen 325 MG Tab PO PRN (16:31)
--- NOTE | 2016-11-17 17:11 | PCM.SN ---
- Free Text/Narrative Note: Dr. Diamond from radiology called me again she was concerned about possible colo- vesical fistula. 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 She reviewed the imaging again and she informed me that because she does not see the tract of a fistula she thinks that most likely the contrast that she thought would be in the colon it's in the double bladder and not because he has fistula. I discussed with patient the findings and I recommended to him transferring to [facility] in [place] or other higher level of care facility especially his left kidney is not functional and his fever is not getting better. I also recommend that so he can have echocardiogram earlier than Sunday to rule out endocarditis. However patient declined to go anywhere and he wants to be treated here. He said he is willing to take the risk and he believes that we are doing our best for his best interest.
[2016-11-18] MEDS: Acetaminophen 325 MG Tab PO PRN ×2 (06:26→19:57)
[2016-11-18 06:59] LABS: CHLORIDE,CL 101 mmol/L (101-111); SODIUM,NA 134 mmol/L (135-145)
--- NOTE | 2016-11-18 11:45 | PCM.PN ---
- General Info Date of Service: 11/18/16 Admission Dx/Problem (Free Text): Admission Diagnosis/Problem Admission Diagnosis/Problem Sepsis and Secondary to UTI and Right pyelonephritis and ramona-nephric abscess Subjective Update: Patient stated that he is feeling better. He declined new symptoms. He had no fever over the night and no more Lower abdomen/left flank pain, and appetite good , continue to have dry cough but getting better. He denies nausea, vomiting, shortness breath, chest pain, dysuria, urinary frequency, any other symptoms or concerns.. Functional Status: Reports: Pain Controlled, Tolerating Diet, Ambulating, Urinating - Review of Systems General: Reports: Appetite (good). Denies: Fever, Chills HEENT: Denies: Dysphasia, Sinus Congestion, Sore Throat Pulmonary: Reports: Cough. Denies: Shortness of Breath, Wheezing Cardiovascular: Reports: Lightheadedness. Denies: Chest Pain, Dyspnea on Exertion Gastrointestinal: Reports: Nausea, Vomiting. Denies: Abdominal Pain, Diarrhea Genitourinary: Denies: Dysuria, Frequency, Burning, Flank Pain Musculoskeletal: Denies: Neck Pain, Leg Pain, Joint Pain Skin: Denies: Cyanosis, Jaundice, Bruising, Rash Neurological: Denies: Confusion, Tingling, Tremors Psychiatric: Reports: No Symptoms - Patient Data Vitals - Most Recent: Last Vital Signs Temp 37.2 C 11/18/16 07:00 Pulse 79 11/18/16 07:00 Resp 20 11/18/16 07:00 BP 115/78 11/18/16 07:00 Pulse Ox 98 11/18/16 07:00 Weight - Most Recent: 75.478 kg I&O - Last 24 Hours: Intake & Output 11/17/16 11/18/16 11/18/16 22:59 06:59 14:59 Intake Total 2238 50 840 Output Total 3750 800 650 Balance -1512 -750 190 Lab Results Last 24 Hours: Laboratory Results - last 24 hr 11/18/16 11/18/16 11/18/16 Range/Units 06:10 06:10 06:10 WBC 8.5 (5.0-10.0) 10^3/uL RBC 4.15 L (4.6-6.2) 10^6/uL Hgb 12.0 L (14.0-18.0) g/dL Hct 35.8 L (40.0-54.0) % MCV 86.3 (80-100) fL MCH 28.9 (27.0-34.0) pg MCHC 33.5 (33.0-35.0) g/dL Plt Count 268 (150-450) 10^3/uL Neut % (Auto) 64.9 (42.2-75.2) % Lymph % (Auto) 18.3 L (20.5-50.1) % [place] % (Auto) 16.2 H (2-8) % Eos % (Auto) 0.5 L (1.0-3.0) % Baso % (Auto) 0.1 (0.0-1.0) % Sodium 134 L (135-145) mmol/L Potassium 3.6 (3.6-5.0) mmol/L Chloride 101 (101-111) mmol/L Carbon Dioxide 23.0 (21.0-31.0) mmol/L Anion Gap 13.6 BUN 11 (7-18) mg/dL Creatinine 1.2 (0.6-1.3) mg/dL Est Cr Clr Drug Dosing 85.61 mL/min Estimated GFR (MDRD) > 60 BUN/Creatinine Ratio 9.16 Glucose 98 (74-105) mg/dL Calcium 8.1 L (8.4-10.2) mg/dl Magnesium 2.1 (1.8-2.5) mg/dL Total Bilirubin 0.5 (0.2-1.0) mg/dL AST 23 (10-42) IU/L ALT 25 (10-60) IU/L Alkaline Phosphatase 82 (42-121) IU/L C-Reactive Protein 12.5 H (0.0-1.3) mg/dL Total Protein 6.8 (6.7-8.2) g/dl Albumin 2.2 L (3.2-5.5) g/dl Globulin 4.6 Albumin/Globulin Ratio 0.48 Joey Results Last 24 Hours: Microbiology 11/16/16 08:48 Aerobic Blood Culture - Preliminary Blood - Venous NO GROWTH AFTER 2 DAYS Anaerobic Blood Culture - Preliminary NO GROWTH AFTER 2 DAYS 11/16/16 08:50 Aerobic Blood Culture - Preliminary Blood - Venous - Lab Draw NO GROWTH AFTER 2 DAYS Anaerobic Blood Culture - Final Med Orders - Current: Current Medications Acetaminophen (Tylenol) 650 mg PO Q4H PRN PRN Reason: Pain (Mild 1-3)/fever Last Admin: 11/18/16 06:26 Dose: 650 mg Hydrocodone Bitart/Acetaminophen ([place] 325-10 Mg) 0.5 tab PO Q4H PRN PRN Reason: Pain (moderate 4-6) Guaifenesin (Mucus Relief) 400 mg PO Q4H PRN PRN Reason: Cough Last Admin: 11/15/16 15:30 Dose: 400 mg Ceftriaxone Sodium 2 gm/ (Sodium Chloride) 100 mls @ 200 mls/hr IV Q24H [facility] Last Admin: 11/17/16 12:40 Dose: 200 mls/hr Sodium Chloride (Normal Saline) 1,000 mls @ 50 mls/hr IV ASDIRECTED [facility] Stop: 11/18/16 14:01 Last Admin: 11/17/16 19:33 Dose: 50 mls/hr Morphine Sulfate (Morphine) 2 mg IVPUSH Q2H PRN PRN Reason: Pain (severe 7-10) Ondansetron HCl (Zofran) 4 mg IVPUSH Q6H PRN PRN Reason: Nausea/Vomiting Polyethylene Glycol (Miralax) 17 gm PO DAILY PRN PRN Reason: Constipation Promethazine HCl (Phenergan) 6.25 mg IM Q6H PRN PRN Reason: Nausea/Vomiting Zolpidem Tartrate (Ambien) 5 mg PO BEDTIME PRN PRN Reason: Sleep Discontinued Medications Acetaminophen (Tylenol Extra Strength) 500 mg PO ONETIME ONE Stop: 11/15/16 17:02 Last Admin: 11/15/16 17:11 Dose: 500 mg Levofloxacin/Dextrose 750 mg/ (Premix) 150 mls @ 100 mls/hr IV ONETIME ONE Stop: 11/14/16 18:42 Last Admin: 11/14/16 17:18 Dose: 100 mls/hr Levofloxacin/Dextrose 750 mg/ (Premix) 150 mls @ 100 mls/hr IV Q24H [facility] Last Infusion: 11/16/16 19:05 Dose: Infused Sodium Chloride (Normal Saline) 2,350 mls @ 999 mls/hr IV .BOLUS ONE Stop: 11/14/16 20:06 Last Infusion: 11/14/16 21:52 Dose: Infused Sodium Chloride (Normal Saline) 1,000 mls @ 75 mls/hr IV ASDIRECTED [facility] Last Admin: 11/15/16 05:58 Dose: 75 mls/hr Sodium Chloride (Normal Saline) 1,000 mls @ 75 mls/hr IV ASDIRECTED [facility] Stop: 11/16/16 18:01 Last Infusion: 11/16/16 11:43 Dose: Infused Sodium Chloride (Normal Saline) 1,000 mls @ 75 mls/hr IV ASDIRECTED [facility] Stop: 11/17/16 11:37 Last Admin: 11/17/16 02:44 Dose: 75 mls/hr Magnesium Sulfate 2 gm/ Premix 50 mls @ 25 mls/hr IV ONETIME ONE Stop: 11/17/16 10:47 Last Infusion: 11/17/16 12:38 Dose: Infused Iopamidol (Isovue-300 (61%)) 100 ml IVPUSH ONETIME ONE Stop: 11/17/16 09:48 Last Admin: 11/17/16 10:03 Dose: 100 ml Potassium Chloride (Klor-Con 10) 20 meq PO ONETIME ONE Stop: 11/15/16 10:16 Last Admin: 11/15/16 10:36 Dose: 20 meq Potassium Chloride (Klor-Con 10) 40 meq PO ONETIME ONE Stop: 11/16/16 08:32 Last Admin: 11/16/16 08:56 Dose: 40 meq - Exam Quality Assessment: DVT Prophylaxis. No: Supplemental Oxygen, Urine Catheter, Skin Breakdown General: Alert, Oriented, Cooperative, No Acute Distress HEENT: Pupils Equal, Pupils Reactive, Mucous Membr. Moist/[place] Neck: Supple. No: No Thyromegaly, Lymphadenopathy Lungs: Clear to Auscultation, Normal Respiratory Effort. No: Crackles, Wheezing Cardiovascular: Regular Rate, Regular Rhythm, No Murmurs GI/Abdominal Exam: Normal Bowel Sounds, Soft, Non-Tender, No Distention. No: Guarding, Rebound (Male) Exam: Deferred Extremities: Normal Inspection, No Pedal Edema Skin: Warm, Dry, Intact Neurological: No New Focal Deficit Psy/Mental Status: Alert, Normal Affect, Normal Mood - Problem List Review Problem List Initiated/Reviewed/Updated: Yes - Plan Plan:: This is 41-year-old male with the past medical history of recurrent UTI who used to be on chronic treatment of Bactrim but stopped taking Bactrim over 1 year by himself presented to the emergency room with fever, chills, sweats, nausea, vomiting, lower abdomen pain, right flank pain, cough, headache, body aches, poor appetite since 11/10/16 and not getting better Assessment and plan Sepsis, source of infection is most likely urinary tract. He had elevated WBC and temp On admission patient received fluid resuscitation with normal saline bolus Urine culture came back positive for Escherichia coli which is sensitive to Levaquin -Continue IV fluid infusion of normal saline at 50 mL per hour -Continue Levaquin 750 milligrams IV daily -blood cultures on admission still negative -Consider another CT abdomen if he continues to have symptoms in the next 24-48 hours Right perinephritic abscess -CT abdomen and pelvis without and with contrast is done on 11/17/16 and reported 2 Perinephritic abscesses measuring 6 x 9 mm. - Dr. Andrade discussed with Dr. Mac, from infectious disease, Dr. Echavarria, from interventional radiology, and Dr. Mata from urology, at [facility], and Dr. Diamond, right urologist from [facility], on 11/17/16 and discussed the case with them -Recommended change of Levaquin to Rocephin 2 g daily, serial CT abdomen and pelvis with contrast in 7 days and sooner if patient continues to have fever, consider doing echocardiogram on Sunday ( 11/20/16) if still having fever. - Length of IV antibiotic according to Dr. Mac is 4-6 weeks. Abscesses are not drainable according to Dr. Briceno, and Dr. Mata -Delayed CT of pelvis is ordered due to concern about air in the bladder. Patient did not have any Kaplan catheter recently to explain the air. 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 ~He was most recently seen by urologist up in [place] and told that there was no need in doing any further studies or surgery because the results of any further operation could not be guaranteed due to the multiple congenital anomalies. 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 Hypomagnesemia He has received Magnesium sulfate 2 g IV and recheck magnesium is acceptable Hyponatremia Improving -Recheck sodium in the morning was 134 meq/L -Continue NS at 50 ml/hr Hypokalemia -Will continue Replaced orally as nedded Cough Chest x-ray is negative WILBER zee and Lyric for DVT prophylaxis. He is ambulatory He is full code
[2016-11-18] MEDS: cefTRIAXone 2 GM in Sodium Chloride 0.9% 100 ML IV SCH (12:07)
[2016-11-19] MEDS: cefTRIAXone 2 GM in Sodium Chloride 0.9% 100 ML IV SCH (12:01)
--- NOTE | 2016-11-19 12:16 | PCM.PN ---
- General Info Date of Service: 11/19/16 Admission Dx/Problem (Free Text): Admission Diagnosis/Problem Admission Diagnosis/Problem Sepsis and Secondary to UTI and Right pyelonephritis and ramona-nephric abscess Subjective Update: Patient stated that he is feeling better. He declined new symptoms. He had no fever for >48 hrs and no more Lower abdomen/left flank pain, and appetite good , continue to have dry cough but getting better. He denies nausea, vomiting, shortness breath, chest pain, dysuria, urinary frequency, any other symptoms or concerns.. Functional Status: Reports: Pain Controlled, Tolerating Diet, Ambulating, Urinating - Review of Systems General: Reports: Appetite (good). Denies: Fever, Chills HEENT: Denies: Sinus Congestion, Sore Throat, Visual Changes Pulmonary: Reports: Cough (biu improving). Denies: Shortness of Breath, Pleuritic Chest Pain, Sputum, Wheezing Cardiovascular: Denies: Chest Pain, Dyspnea on Exertion, Lightheadedness Gastrointestinal: Denies: Abdominal Pain, Diarrhea, Nausea, Vomiting Genitourinary: Denies: Dysuria, Burning, Urgency, Flank Pain Musculoskeletal: Denies: Neck Pain, Arm Pain, Leg Pain, Foot Pain Skin: Denies: Cyanosis, Dryness, Bruising, Pruritis, Rash Neurological: Denies: Confusion, Numbness, Tremors Psychiatric: Reports: No Symptoms - Patient Data Vitals - Most Recent: Last Vital Signs Temp 36.7 C 11/19/16 10:38 Pulse 76 11/19/16 10:38 Resp 20 11/19/16 10:38 BP 117/72 11/19/16 10:38 Pulse Ox 100 11/19/16 10:38 Weight - Most Recent: 75.478 kg I&O - Last 24 Hours: Intake & Output 11/18/16 11/19/16 11/19/16 22:59 06:59 14:59 Intake Total 1422 550 640 Output Total 1550 1200 500 Balance -128 -650 140 Joey Results Last 24 Hours: Microbiology 11/16/16 08:48 Aerobic Blood Culture - Preliminary Blood - Venous NO GROWTH AFTER 3 DAYS Anaerobic Blood Culture - Preliminary NO GROWTH AFTER 3 DAYS 11/16/16 08:50 Aerobic Blood Culture - Preliminary Blood - Venous - Lab Draw NO GROWTH AFTER 3 DAYS Anaerobic Blood Culture - Final Med Orders - Current: Current Medications Acetaminophen (Tylenol) 650 mg PO Q4H PRN PRN Reason: Pain (Mild 1-3)/fever Last Admin: 11/18/16 19:57 Dose: 650 mg Hydrocodone Bitart/Acetaminophen ([place] 325-10 Mg) 0.5 tab PO Q4H PRN PRN Reason: Pain (moderate 4-6) Guaifenesin (Mucus Relief) 400 mg PO Q4H PRN PRN Reason: Cough Last Admin: 11/15/16 15:30 Dose: 400 mg Ceftriaxone Sodium 2 gm/ (Sodium Chloride) 100 mls @ 200 mls/hr IV Q24H [facility] Last Admin: 11/19/16 12:01 Dose: 200 mls/hr Morphine Sulfate (Morphine) 2 mg IVPUSH Q2H PRN PRN Reason: Pain (severe 7-10) Ondansetron HCl (Zofran) 4 mg IVPUSH Q6H PRN PRN Reason: Nausea/Vomiting Polyethylene Glycol (Miralax) 17 gm PO DAILY PRN PRN Reason: Constipation Promethazine HCl (Phenergan) 6.25 mg IM Q6H PRN PRN Reason: Nausea/Vomiting Zolpidem Tartrate (Ambien) 5 mg PO BEDTIME PRN PRN Reason: Sleep Discontinued Medications Acetaminophen (Tylenol Extra Strength) 500 mg PO ONETIME ONE Stop: 11/15/16 17:02 Last Admin: 11/15/16 17:11 Dose: 500 mg Levofloxacin/Dextrose 750 mg/ (Premix) 150 mls @ 100 mls/hr IV ONETIME ONE Stop: 11/14/16 18:42 Last Admin: 11/14/16 17:18 Dose: 100 mls/hr Levofloxacin/Dextrose 750 mg/ (Premix) 150 mls @ 100 mls/hr IV Q24H [facility] Last Infusion: 11/16/16 19:05 Dose: Infused Sodium Chloride (Normal Saline) 2,350 mls @ 999 mls/hr IV .BOLUS ONE Stop: 11/14/16 20:06 Last Infusion: 11/14/16 21:52 Dose: Infused Sodium Chloride (Normal Saline) 1,000 mls @ 75 mls/hr IV ASDIRECTED [facility] Last Admin: 11/15/16 05:58 Dose: 75 mls/hr Sodium Chloride (Normal Saline) 1,000 mls @ 75 mls/hr IV ASDIRECTED [facility] Stop: 11/16/16 18:01 Last Infusion: 11/16/16 11:43 Dose: Infused Sodium Chloride (Normal Saline) 1,000 mls @ 75 mls/hr IV ASDIRECTED [facility] Stop: 11/17/16 11:37 Last Admin: 11/17/16 02:44 Dose: 75 mls/hr Magnesium Sulfate 2 gm/ Premix 50 mls @ 25 mls/hr IV ONETIME ONE Stop: 11/17/16 10:47 Last Infusion: 11/17/16 12:38 Dose: Infused Sodium Chloride (Normal Saline) 1,000 mls @ 50 mls/hr IV ASDIRECTED [facility] Stop: 11/18/16 14:01 Last Infusion: 11/18/16 16:50 Dose: Infused Iopamidol (Isovue-300 (61%)) 100 ml IVPUSH ONETIME ONE Stop: 11/17/16 09:48 Last Admin: 11/17/16 10:03 Dose: 100 ml Potassium Chloride (Klor-Con 10) 20 meq PO ONETIME ONE Stop: 11/15/16 10:16 Last Admin: 11/15/16 10:36 Dose: 20 meq Potassium Chloride (Klor-Con 10) 40 meq PO ONETIME ONE Stop: 11/16/16 08:32 Last Admin: 11/16/16 08:56 Dose: 40 meq - Exam Quality Assessment: DVT Prophylaxis. No: Supplemental Oxygen, Urine Catheter General: Alert, Oriented, Cooperative, No Acute Distress HEENT: Pupils Equal, EOMI, Mucous Membr. Moist/[place] Neck: Supple, No Thyromegaly. No: Lymphadenopathy Lungs: Clear to Auscultation, Normal Respiratory Effort. No: Crackles, Wheezing Cardiovascular: Regular Rate, Regular Rhythm. No: Gallops, Rubs GI/Abdominal Exam: Normal Bowel Sounds, Soft, Non-Tender. No: Guarding, Rebound , Tender (Male) Exam: Deferred Back Exam: Normal Inspection, Full Range of Motion Extremities: Normal Inspection, Normal Range of Motion, Non-Tender, No Pedal Edema. No: Joint Swelling Skin: Warm, Dry, Intact Neurological: No New Focal Deficit Psy/Mental Status: Alert, Normal Affect, Normal Mood - Problem List Review Problem List Initiated/Reviewed/Updated: Yes - Plan Plan:: This is 41-year-old male with the past medical history of recurrent UTI who used to be on chronic treatment of Bactrim but stopped taking Bactrim over 1 year by himself presented to the emergency room with fever, chills, sweats, nausea, vomiting, lower abdomen pain, right flank pain, cough, headache, body aches, poor appetite since 11/10/16 and not getting better Assessment and plan Sepsis, source of infection is most likely urinary tract. He had elevated WBC and temp On admission patient received fluid resuscitation with normal saline bolus Urine culture came back positive for Escherichia coli which is sensitive to Levaquin -Continue IV fluid infusion of normal saline at 50 mL per hour -Continue Levaquin 750 milligrams IV daily -blood cultures on admission still negative -Consider another CT abdomen if he continues to have symptoms in the next 24-48 hours Right perinephritic abscess -CT abdomen and pelvis without and with contrast is done on 11/17/16 and reported 2 Perinephritic abscesses measuring 6 x 9 mm. - Dr. Andrade discussed with Dr. Mac, from infectious disease, Dr. Echavarria, from interventional radiology, and Dr. Mata from urology, at [facility], and Dr. Diamond, right urologist from [facility], on 11/17/16 and discussed the case with them -Recommended change of Levaquin to Rocephin 2 g daily, serial CT abdomen and pelvis with contrast in 7 days and sooner if patient continues to have fever, consider doing echocardiogram on Sunday ( 11/20/16) if still having fever. - Length of IV antibiotic according to Dr. Mac is 4-6 weeks. Abscesses are not drainable according to Dr. Espinosa and Dr. 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 ~He was most recently seen by urologist up in [place] and told that there was no need in doing any further studies or surgery because the results of any further operation could not be guaranteed due to the multiple congenital anomalies. 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 operator IV abx and will need PICC line placement ( possibly will get on Sunday) for continuation of IV Ceftriaxone for 4-6 weeks duration -Pt will need PICC line for long chain dyeing machine operator Abx Therapy and also follow with ID and Urology Pyelonephritis Patient was advised to continue taking his Bactrim until he follow-up with his primary care provider and continue to follow with urology Acute kidney failure Patient presented with TANGELA secondary to UTI -Creatinine improved from 1.6>1.5>1.3 .1.2 -Continue IV fluid infusion Avoid nephrotoxic medications Patient was advised to follow up with Automation Qa Analyst after discharge. Hypomagnesemia He has received Magnesium sulfate 2 g IV and recheck magnesium is acceptable Hyponatremia Improving -Recheck sodium in the morning was 134 meq/L -Will stop IVF Hypokalemia -Will continue Replaced orally as needed, BMP in AM ( Ordered) Cough Chest x-ray is negative WILBER zee and Lyric for DVT prophylaxis. He is ambulatory He is full code
[2016-11-20 07:04] LABS: CHLORIDE,CL 102 mmol/L (101-111); SODIUM,NA 138 mmol/L (135-145)
[2016-11-20] MEDS: cefTRIAXone 2 GM in Sodium Chloride 0.9% 100 ML IV SCH (14:41)
[2016-11-20 15:01] VITALS: BP 124/86
--- NOTE | 2017-01-26 06:33 | DISCH ---
DISCHARGE DIAGNOSES: 1. Right pyelonephritis, recurrent. 2. Atrophic left kidney. 3. 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 4. Hepatosplenomegaly on CT scan. 5. Urinary tract infection, Escherichia coli. 6. Negative blood cultures x4. 7. Anemia, normocytic. 8. Hyponatremia, resolved. 9. Hypoalbuminemia. 10.Voluntary medical noncompliance with chronic antibiotic for suppression of recurrent urinary tract infections. 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 12.Acute kidney injury secondary to urinary tract infection, resolved. BRIEF HISTORY OF PRESENT ILLNESS: Mr. Vinson is a 41-year-old gentleman with a long history of renal disease. He has had recurrent UTIs and was supposed to be on chronic suppressive treatment with Bactrim, but stopped taking the Bactrim over 1 year ago. He presented to the emergency room with fever, chills, diaphoresis, nausea, vomiting, lower abdominal pain, right flank pain, headache, and body aches, which began 4 to 5 days prior to admission and did not improve. He denied urinary tract symptoms. No dysuria or hematuria. He does have history of renal calculi as well. In the ER, he was found to have a urinary tract infection. CAT scan was performed, and he was found to have right pyelonephritis, and he was admitted for further management. PERTINENT LABS AND X-RAYS: On the day of admission, white count was 12,700 and was 8500 at discharge. Hemoglobin and hematocrit at discharge were 12 and 35.8 with normal MCV. Platelets were normal. Chemistry showed admission sodium of 126, which was 138 at discharge. Potassium was normal, but went down to 3.4 and was 4.4 at discharge. Blood sugars were normal. Initial BUN and creatinine were 31 and 1.6, but improved to 11 and 1.2 with hydration and treatment, with a GFR of more than 60. LFTs were unremarkable. Albumin was low at 2.9. Urinalysis showed a cloudy yellow urine with large amount of protein, positive for nitrites and leukocyte esterase, 50 to 75 wbc's per high-power field, and many bacteria. Four sets of blood cultures showed no growth after 5 days. Urine culture was positive for E. coli, which was sensitive to all antibiotics tested. CT scan of the abdomen and pelvis was performed without and with IV contrast. It demonstrated anatomic abnormalities within the urinary tract system. The left kidney is atrophic and hypoplastic. 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 There were changes in the right kidney consistent with pyelonephritis and small forming abscesses. There was also hepatosplenomegaly noted. A 2-view chest x-ray was performed and showed no acute pulmonary disease. An echocardiogram was performed and showed normal LV size and function with an ejection fraction of 55% to 60%. Normal wall motion. Normal RV size and function. No significant valvular heart disease. No vegetations were seen. No evidence of pericardial effusion or tamponade. HOSPITAL COURSE: Mr. Vinson was admitted as an acute inpatient. He was started on IV Levaquin 750 mg every 24 hours for the urinary tract infection. IV morphine was used for pain. He was given medications for nausea. Tylenol was used for pain and fever as well as hydrocodone. Later, IV ceftriaxone was added. He improved. He felt ready to be discharged to home. We spoke with him and his . We discussed this with Infectious Disease, and they felt that he should have a prolonged course of IV antibiotics of 4 to 6 weeks' duration, and Infectious Disease agreed to follow him. We spoke with and Mrs. Vinson. 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 We also discussed placing a PICC line. Mr. Vinson stated that he would come back to the hospital and follow up on all of this. We did write orders for him to receive outpatient IV antibiotics. He never returned and was lost to follow up. We also had refilled his prescription for ongoing Bactrim, which he was supposed to be taking, and it is likely that he chose to resume the Bactrim and never returned for the IV antibiotics. He and his were aware of this problem that he has. This has been going on his entire life, and he did not wish to pursue any further treatment at this time. On the day of discharge, review of his clinical data shows that he was taking in adequate fluids. He was voiding and moving his bowels. He was tolerating 100% of his meals. Vital signs were stable. He was afebrile. PHYSICAL EXAMINATION: Vital Signs: On the day of discharge, blood pressure was 124/86, pulse 78, respiratory rate 20, and oxygen saturation 98% on room air. He was afebrile. Weight 161 pounds and height 6 feet. HEENT: Unremarkable. ENT: Clear. Chest: Showed clear bilateral breath sounds. Heart: Showed regular rate and rhythm. Abdomen: Soft, benign, and nontender. Extremities: Showed no edema. Neurological: He was intact. PLAN: He will be discharged to home. He was not on any regular medications. He had not taken his prophylactic Bactrim for over a year. We did agree to send in a new prescription, and in all likelihood, he chose to poultry picker that prescription and did not follow up with the plan for outpatient IV antibiotics. CONDITION AT TIME OF DISCHARGE: Improved and stable. MICAH /[id number] ZAKIYA
== END 2016-11-20 15:30 | disposition home or self-care (01) | DRG 871 ==
LOC: DL.ED 14:14 → DL.MS 17:16 → UNDOADMIN 17:16 → DL.MS 17:47
PROVIDERS: ADMIT Family Medicine; ATTEND Family Medicine
DX: A41.9 Sepsis, unspecified organism (principal); N15.1 Renal and perinephric abscess; N39.0 Urinary tract infection, site not specified; E87.1 Hypo-osmolality and hyponatremia; N17.9 Acute kidney failure, unspecified; N12 Tubulo-interstitial nephritis, not specified as acute or chronic; Z87.440 Personal history of urinary (tract) infections; H54.7 Unspecified visual loss; R05 Cough; E87.6 Hypokalemia; B96.20 Unspecified Escherichia coli [E. coli] as the cause of diseases classified elsewhere; E83.42 Hypomagnesemia; Q64.79 Other congenital malformations of bladder and urethra
CPT/HCPCS: 36415; 71020; 74178; 80048; 80053; 81001; 83605; 83735; 85025; 86140; 87040; 87086; 87088; 87186; 93306; 96365; 99283; 99285; A9270-GY; J0696; J1956; J3475; J7030; J7050; Q9967

== ENCOUNTER 2019-08-27 10:37 | Emergency (ER) | payer OTHER, SELFPAY ==
--- NOTE | 2019-08-27 10:42 | EDM.PDOC ---
ED HPI GENERAL MEDICAL PROBLEM - General Chief Complaint: Lower Extremity Injury/Pain Stated Complaint: LEFT FOOT PAIN Time Seen by Provider: 08/27/19 10:41 Source of Information: Reports: Patient, RN, RN Notes Reviewed History Limitations: Reports: No Limitations - History of Present Illness INITIAL COMMENTS - FREE TEXT/NARRATIVE: Pt presents to ER by POV with c/o left ankle injury at work this morning. Pt was pulling on a differential when he slipped on wet concrete and "rolled" his left ankle and heard a pop/crack when happened. The area at the left lateral ankle is swollen. Denies any other injury. Pt rates the pain 2/10 with foot elevated. The pain is aggravated by ROM, palpation, and wt bearing. Nothing alleviates the pain. Onset: Today, Sudden Onset Date: 08/27/19 Duration: Hour(s): (2) Location: Reports: Lower Extremity, Left Quality: Reports: Ache, Throbbing Severity: Severe Improves with: Reports: Immobilization Worsens with: Reports: Movement (Wt bearing) Associated Symptoms: Reports: No Other Symptoms Left Leg Pain Score (Numeric/FACES): 2 - Related Data Allergies Allergy/AdvReac Type Severity Reaction Status Date / Time No Known Allergies Allergy Verified 08/27/19 10:42 Home Meds: Home Meds Sulfamethoxazole/Trimethoprim [Sulfamethoxazole-Tmp Ss Tablet] 1 each PO DAILY 08/27/19 [History] Past Medical History - Past Health History Medical/Surgical History: Denies Medical/Surgical History HEENT History: Reports: Impaired Vision Genitourinary History: Reports: UTI, Recurrent Other Genitourinary History: 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 - Past Surgical History Male Surgical History: Reports: Other (See Below) Other Male Surgeries/Procedures: one functioning kidney Musculoskeletal Surgical History: Reports: Other (See Below) Other Musculoskeletal Surgeries/Procedures:: right leg surgery Social & Family History - Family History Family Medical History: Noncontributory - Caffeine Use Caffeine Use: Reports: None - Living Situation & Occupation Living situation: Reports: , with Spouse Occupation: Employed Review of Systems - Review of Systems Review Of Systems: Comprehensive ROS is negative, except as noted in HPI. ED EXAM, GENERAL - Physical Exam Exam: See Below Exam Limited By: No Limitations General Appearance: Alert, WD/WN, No Apparent Distress Throat/Mouth: Normal Voice, No Airway Compromise Head: Atraumatic, Normocephalic Neck: Normal Inspection, Non-Tender, Full Range of Motion Respiratory/Chest: No Respiratory Distress Cardiovascular: Normal Peripheral Pulses Peripheral Pulses: 3+: Posterior Tibial (L), Posterior Tibial (R), Dorsalis Pedis (L), Dorsalis Pedis (R) Back Exam: Normal Inspection Extremities: Normal Capillary Refill, Limited Range of Motion (left ankle), Other (Left lateral ankle swollen, tender, bruised, no obvious deformity.) Neurological: Alert, Oriented, No Motor/Sensory Deficits Psychiatric: Normal Affect, Normal Mood Skin Exam: Warm, Dry, Intact ED TRAUMA EXTREMITY PROCEDURES - Splinting Left Lower Extremity Splint Site: Left ankle Pre-Procedure NV Status: Normal Post-Procedure NV Status: Normal Splint Material: Fiberglass Splint Design: Posterior Applied & Form Fitted By: Nurse Provider Post-Splint Application NV Check: NV Status Normal, Good Position Complications: No Course - Vital Signs Last Recorded V/S: Last Vital Signs Temp 97.7 F 08/27/19 10:44 Pulse 62 08/27/19 10:44 Resp 16 08/27/19 10:44 BP 172/96 H 08/27/19 10:44 Pulse Ox 100 08/27/19 10:44 - Orders/Labs/Meds Orders: Active Orders 24 hr Category Date Time Status Ankle Min 3V Lt [CR] Stat Exams 08/27/19 10:49 Ordered DME for Discharge [COMM] Routine Oth 08/27/19 11:06 Ordered Meds: Medications Discontinued Medications Generic Name Dose Route Start Last Admin Trade Name Seanq PRN Reason Stop Dose Admin Hydrocodone Bitart/Acetaminophen 1 tab 08/27/19 11:06 Larsen 325-10 Mg PO 08/27/19 11:07 ONETIME ONE - Radiology Interpretation Free Text/Narrative:: XR Left Ankle: distal fibula fracture, see Rad. report. Departure - Departure Time of Disposition: 11:11 Disposition: Home, Self-Care 01 Condition: Good Clinical Impression: Closed fracture of left distal fibula Qualifiers: Encounter type: initial encounter Fracture morphology: other fracture Qualified Code(s): S82.832A - Other fracture of upper and lower end of left fibula, initial encounter for closed fracture - Discharge Information *PRESCRIPTION DRUG MONITORING PROGRAM REVIEWED*: Not Applicable *COPY OF PRESCRIPTION DRUG MONITORING REPORT IN PATIENT ETHAN: Not Applicable Instructions: Ankle Fracture Forms: ED Department Discharge Additional Instructions: Rx: Hydrocodone APAP 5mg/325mg Use crutches, no weight bearing on left ankle. Rest, ice pack, and elevate left ankle to reduce pain and swelling. Call [phone] today to schedule an appointment with [facility]. Your x-rays have been sent electronically to the orthopedic clinic. Sepsis Event Note (ED) - Focused Exam Vital Signs: Vital Signs Temp Pulse Resp BP Pulse Ox 08/27/19 10:44 97.7 F 62 16 172/96 H 100 - My Orders Last 24 Hours: My Active Orders 08/27/19 10:49 Ankle Min 3V Lt [CR] Stat 08/27/19 11:06 DME for Discharge [COMM] Routine - Assessment/Plan Last 24 Hours: My Active Orders 08/27/19 10:49 Ankle Min 3V Lt [CR] Stat 08/27/19 11:06 DME for Discharge [COMM] Routine
[2019-08-27 10:48] VITALS: BP 172/96; PULSE 62
[2019-08-27] MEDS: Acetaminophen/HYDROcodone 325-10 MG Tab PO ONE (11:25)
--- NOTE | 2019-08-27 11:25 | CR ---
EXAMINATION: Ankle Min 3V Lt SEX: Male AGE: 44 years CLINICAL HISTORY: 44-year-old male emergency department complaining of pain (Left ankle injury). Interpretation: Abnormal. Asymmetric pronounced soft tissue swelling laterally with underlying acute spiral nondisplaced fracture distal left fibula (diametaphysis). Ankle mortise joints symmetrically intact. No sign of other fracture/dislocation left ankle. Small heel spur at insertion plantar aponeurosis base of the os calcis. CONCLUSION: Acute, nondisplaced spiral FRACTURE distal left fibula. Soft tissue swelling.
== END 2019-08-27 11:31 | disposition home or self-care (01) ==
LOC: DL.ED 10:37
DX: S82.832A Other fracture of upper and lower end of left fibula, initial encounter for closed fracture (principal); X50.1XXA Overexertion from prolonged static or awkward postures, initial encounter; Y92.89 Other specified places as the place of occurrence of the external cause; Y99.0 Civilian activity done for income or pay
CPT/HCPCS: 29515; 73610-LT; 99283-25

== ENCOUNTER 2023-06-24 20:05 | Emergency (ER) | payer SELFPAY ==
[2023-06-24] MEDS: Cephalexin 500 MG Cap PO ONE (20:57)
[2023-06-24] MEDS: Lidocaine 1% 5 ML VIAL INJECT ONE (20:58)
[2023-06-24] MEDS: Take Home: Cephalexin 500 MG Cap, 6 Cap Pack PO ONE (22:32)
[2023-06-24 22:38] VITALS: BP 136/84; PULSE 100
== END 2023-06-24 22:42 | disposition home or self-care (01) ==
LOC: DL.ED 20:05
DX: S61.211A Laceration without foreign body of left index finger without damage to nail, initial encounter (principal); W26.8XXA Contact with other sharp object(s), not elsewhere classified, initial encounter; Y93.G1 Activity, food preparation and clean up
CPT/HCPCS: 12002; 73140-F1; 99282; 99283; A9270-GY; J3490